=== PATIENT | female | born 1970 | race African-American/Black ===

== ENCOUNTER 2019-05-03 21:35 | IRF | payer OTHER, SELFPAY ==
--- NOTE | 2019-05-03 21:51 | ADMGEN ---
This patient, Delia Gonzales, was admitted to [facility] Room 223-01. Patient/family oriented to hospital policies and general routines including ID bracelet, bed and alarms, visiting hours, pain management, procedures, bathroom and other care routines, personal items, smoking policy, room service/diet, and visiting hours. Valuables list has been completed. Information on how to activate the Rapid Response Team has been discussed. Patient/Family are encouraged to report perceived risks to care and to ask questions if they do not understand what they are told or what they should do.
[2019-05-03 22:00] VITALS: BP 165/72; PULSE 66; RESP 18; TEMP 36.6; O2SAT 100
--- NOTE | 2019-05-03 22:46 | ADMGEN ---
This patient, Delia Gonzales, was admitted to [facility] Room 223-01 at 2135. Patient/family oriented to hospital policies and general routines including ID bracelet, bed and alarms, visiting hours, pain management, procedures, bathroom and other care routines, personal items, smoking policy, room service/diet, and visiting hours. Valuables list has been completed. Information on how to activate the Rapid Response Team has been discussed. Patient/Family are encouraged to report perceived risks to care and to ask questions if they do not understand what they are told or what they should do.
[2019-05-03 23:35] VITALS: PULSE 70
[2019-05-03] MEDS: ATORVASTATIN 40 MG TABLET 80 MG PO (23:35)
[2019-05-03] MEDS: carvediloL 12.5 MG TABLET PO (23:35)
[2019-05-03] MEDS: PANTOPRAZOLE 40 MG TABLET PO (23:36)
[2019-05-03] MEDS: INSULIN GLARGINE (*BKC) 100 UNITS/ML 15 UNITS SUB-Q (23:40)
[2019-05-03 23:49] LABS: Glucose Point of Care 116 (65-105)
[2019-05-04 05:38] LABS: Basophils Percent Auto 0.5 % (0.2-1.2); Eosinophils Absolute Auto 0.3 K/mm3 (0-0.3); Eosinophils Percent Auto 4.1 % (0-4.4); Hematocrit 30.7 % (37.0-47.0); Hemoglobin 9.7 g/dL (12.0-15.0); Immature Granulocyte Absolute 0.02 K/mm3 (0.00-0.031); Immature Granulocyte Percent A 0.3 % (0-0.5); Immature Platelet Fraction Pct 14.9 % (0.9-11.2); Lymphocytes Absolute Auto 2.02 K/mm3 (0.9-3.2); Lymphocytes Percent Auto 30.5 % (18.3-44.2); Mean Corpuscular HGB Conc 31.6 g/dl (32-36); Mean Corpuscular Hemoglobin 29.1 pg (26-34); Mean Corpuscular Volume 92.2 fl (80-100); Monocytes Absolute Auto 0.7 K/mm3 (0.1-0.6); Monocytes Percent Auto 11.2 % (2.6-8.5); Neutrophils Absolute Auto 3.5 K/mm3 (1.3-6.7); Neutrophils Percent Auto 53.4 % (45.5-73.1); Platelet Count Result 193 k/mm3 (150-375); Red Blood Count 3.33 M/mm3 (4.2-5.4); Red Cell Distribution Width 13.5 % (11.5-14.5); White Blood Count 6.6 K/mm3 (4.5-10.0)
[2019-05-04 05:48] LABS: Hemoglobin A1C 8.9 % (<5.7)
[2019-05-04 05:52] LABS: Blood Urea Nitrogen 54 mg/dL (7-17); Calcium 8.9 mg/dL (8.4-10.2); Carbon Dioxide 22 mmol/L (22-30); Chloride 104 mmol/L (98-107); Cholesterol 156 mg/dL (0-200); Estimated Glomerular Filt Rate 28; Glucose 68 mg/dL (65-105); HDL Direct 31 mg/dL; Sodium 136 mmol/L (137-145); Triglycerides 128 mg/dL (<150)
[2019-05-04 06:00] VITALS: BP 148/64; PULSE 64; RESP 17; TEMP 36.2; O2SAT 100
[2019-05-04 06:03] LABS: LDL Cholesterol Direct 86 mg/dL
[2019-05-04 06:41] LABS: Glucose Point of Care 100 (65-105)
[2019-05-04 07:17] VITALS: BMI 27.7
[2019-05-04] MEDS: CHLORTHALIDONE 25 MG TABLET PO (08:53)
[2019-05-04] MEDS: ASPIRIN 81 MG CHEWABLE TABLET PO (08:53)
[2019-05-04] MEDS: SPIRONOLACTONE 25 MG TABLET PO (08:54)
[2019-05-04] MEDS: AMLODIPINE BESYLATE 5 MG TABLET 10 MG PO (08:54)
[2019-05-04] MEDS: carvediloL 12.5 MG TABLET PO ×2 (08:54→20:17)
[2019-05-04] MEDS: INSULIN GLARGINE (*BKC) 100 UNITS/ML 15 UNITS SUB-Q ×2 (08:54→20:17)
[2019-05-04] MEDS: DOCUSATE SODIUM 100 MG CAPSULE PO (08:54)
--- NOTE | 2019-05-04 10:00 | WPDREHABHP ---
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 The patient is a for 8-year-old right-handed Afro [place] woman with a history of diabetes and hypertension presented to [facility] on April 28, 2019 with complaints of high blood pressure despite being compliant with her antihypertensive medications. She also has had complains of nausea vomiting and chest discomfort. The patient reported that she has checked her blood pressure at home and it was 220/108. In the emergency room her blood pressure was 240/141 and she was wanted admitted to a telemetry bed and Cardiology was consulted. EKG showed normal sinus and septal infarct which is stable from the previous EKG. Overnight on April 29 she developed right-sided weakness and MRI demonstrated an acute infarction in the left walter additional punctate acute infarctions within the right frontal coronary radiata and centrum semi ovale. It was thought the likely her hypertensive urgency was probably a reaction to cerebral ischemia in an attempt to perfuse the ischemic tissues and correcting her blood pressure likely precipitated the completion of the stroke. On May 02 the patient's BUN and creatinine peaked at 57 and 2.5. He elevations was likely secondary to metformin and lisinopril use and these medications were discontinued. On BUN is down trending to 55 and creatinine 2.3 and orders are to continue to monitor. She was placed on 20 units of Lantus b.i.d. for the treatment for of diabetes. Echocardiogram demonstrated an ejection fraction of 65% she currently is alert and oriented x3 but demonstrates some slow processing decreased cognition, impaired balance and decreased coordination the patient is discharged on a mechanical soft diet and thin liquids Therapy was initiated at the acute care facility and the patient transferred to us from [facility] on May 03, 2019 FALLS OR SURGERIES: The patient has had no major surgeries in the 100 days prior to admission. They had no falls in the past year. They had no falls with injury in the past year. PAST MEDICAL HISTORY: cataracts, asthma, peripheral neuropathy, diabetes mellitus type 2, hypertension PAST SURGICAL HISTORY: C sections SOCIAL HISTORY: the patient lives with her sister and children. She reported 3 to 4 falls in the last 2 months. She was independent with basic ADLs and family assisted with the instrumental ADLs. She did not use an assistive device FAMILY HISTORY: significant hypertension and diabetes and cardiac disease PRIOR LEVEL OF FUNCTION: Eating was INDEPENDENT Oral Care was INDEPENDENT Toileting Hygiene was INDEPENDENT Shower/Bathing was INDEPENDENT Upper Body Dressing was INDEPENDENT Lower Body Dressing was INDEPENDENT Donning/[place] Footwear was INDEPENDENT Rolling Left and Right was INDEPENDENT Sit to Lying was INDEPENDENT Lying to Sitting was INDEPENDENT Sit to Stand was INDEPENDENT Bed to Chair Transfers was INDEPENDENT Toilet Transfers was INDEPENDENT Walking was INDEPENDENT 750 feet with NO DEVICE Wheelchair Mobility was NOT APPLICABLE PRIOR TO ADMISSION Stairs were INDEPENDENT CURRENT LEVEL OF FUNCTION: Eating was partial or moderate assistance Oral Care was partial or moderate cyst Toileting Hygiene was substantial /maximal assistance Shower/Bathing was substantial/maximal assist Upper Body Dressing was substantial/maximal assist Lower Body Dressing was partial or moderate assistance Donning/[place] Footwear was substantial or maximal assistance Rolling Left and Right was substantial or maximal assistance Sit to Ly
[2019-05-04 11:46] LABS: Glucose Point of Care 159 (65-105)
[2019-05-04 14:00] VITALS: BP 138/68; PULSE 82; RESP 20; TEMP 36.8; O2SAT 97
[2019-05-04 15:12] VITALS: BMI 27.7
[2019-05-04] MEDS: PANTOPRAZOLE 40 MG TABLET PO (16:37)
[2019-05-04 16:51] LABS: Glucose Point of Care 192 (65-105)
--- NOTE | 2019-05-04 16:57 | RPD ---
INDIVIDUALIZED PLAN OF CARE FOR Delia Gonzales Brief Synthesis of Pre-Admission Screen, Post-Admission Evaluation and Therapy Evaluations: The patient presents to rehab with Acute infarct in the left medial walter and and right centrum semiovale. Comorbidities include HTN, nausea, vomiting,asthma, peripheral neuropathy, DMII, chest pain, smoker, diastolic dysfunction grade 2, moderate dysarthria, delayed processing, pain, weakness, CKDIII.The patient requires physician services for neurology services, medical oversight, and coordination of care.The patient needs physician monitoring for adverse reactions to new medications, and pain control. The patient requires nursing services for frequent neuro checks, anticoagulation therapy, medication management and education, pressure relief and skin care management, monitoring of labs, diabetes management and education, and fall/safety precautions. Deficits include:ADLs, Balance, Cognition, Endurance, Mobility, Pain Management, ROM, Safety, Strength, Transfers Meal Cooker/Case Management for: Discharge Planning and Patient/Family Counseling Physical Therapy: 5 days per week for 75 minutes. Treatments may include: Therapeutic Exercise, Gait Training, Neuromuscular Re-education, Transfer Training, Community Reintegration, Bed Mobility, Patient/Family Education, Wheelchair Mobility Group Therapy/Concurrent Therapy Rationales: -Improve attention span during functional activities in a distracted environment. -Enhance problem solving and/or adequate judgment skills during functional activities in a distracted environment. -Promote increased safety awareness in a distracted environment to reduce fall risk with functional tasks, transfers, and ambulation to allow a more safe, self-sufficient return to the home environment. -Improve dynamic balance skills to promote safety and independence with functional activities in a distracted environment for maximum gain. Occupational Therapy: 5 days per week for 75 minutes. Treatments may include: Therapeutic Exercise, Therapeutic Activity, Cognitive Training, Self-Care Transfer Training, Community Reintegration, Home Management, Patient/Family Education, Wheelchair Mobility Training, Energy Conservation Training Group Therapy/Concurrent Therapy Rationales: -Allow therapist to observe and teach generalization and carry-over of skills learned in individual therapy. -Enhance problem solving and sequencing skills during therapeutic activities in a distracted environment. -Promote increased safety awareness in a realistic setting to reduce fall risk with functional tasks due to visual and verbal distractions. -Increase functional level with ADLs, ADL transfers and use of adaptive equipment through therapeutic activities with others while promoting safety to allow a more safe, self-sufficient return home. Speech Therapy: 5 days per week for 30 minutes. Treatments may include: Dysphasia Therapy, Speech/Language/Communication Therapy, Cognitive Training, Patient/Family Education Group Therapy/Concurrent Therapy - Rationale: -Allow therapist to observe and teach generalization and carry-over of skills learned in individual therapy. -Improve comprehension skills with complex or abstract ideas through discussion in a realistic setting. -Enhance problem solving skills with complex issues during activities in a distracted environment. -Promote increased memory skills and concentration in a distracted environment for a safe transition home. -Improve attention and focus with language/communication skills in a realistic and supportive therapeutic setting. -Allow for practice of expression of basic needs and ideas through functional activities with others. Medical Prognosis: Good Anticipated Length of Stay: 12 days Rehab Goals: Eating Goal: 05-Setup or Clean Up Assistance Oral Hygiene Goal: 06-Independent Toileting Hygiene Goal: 04-Supervision or Touching Assistance Shower/Bathe Self Goal: 04-
[2019-05-04] MEDS: ATORVASTATIN 40 MG TABLET 80 MG PO (20:16)
[2019-05-04 21:13] LABS: Glucose Point of Care 169 (65-105)
[2019-05-04 22:00] VITALS: BP 132/64; PULSE 84; RESP 18; TEMP 36.4; O2SAT 100
[2019-05-04] MEDS: polyethylene glycoL 3350 17 GM POWD.PACK PO (23:30)
[2019-05-05 06:00] VITALS: BP 145/66; PULSE 64; RESP 17; TEMP 36.6; O2SAT 100
[2019-05-05 06:41] LABS: Glucose Point of Care 93 (65-105)
[2019-05-05] MEDS: AMLODIPINE BESYLATE 5 MG TABLET 10 MG PO (09:43)
[2019-05-05] MEDS: SPIRONOLACTONE 25 MG TABLET PO (09:43)
[2019-05-05] MEDS: INSULIN GLARGINE (*BKC) 100 UNITS/ML 15 UNITS SUB-Q ×2 (09:43→20:57)
[2019-05-05] MEDS: DOCUSATE SODIUM 100 MG CAPSULE PO ×2 (09:43→18:08)
[2019-05-05] MEDS: ASPIRIN 81 MG CHEWABLE TABLET PO (09:43)
[2019-05-05] MEDS: CHLORTHALIDONE 25 MG TABLET PO (09:43)
[2019-05-05] MEDS: carvediloL 12.5 MG TABLET PO ×2 (09:43→20:53)
[2019-05-05 12:26] LABS: Glucose Point of Care 217 (65-105)
[2019-05-05 14:00] VITALS: BP 174/84; PULSE 65; RESP 16; TEMP 36.3; O2SAT 100
[2019-05-05 17:47] LABS: Glucose Point of Care 215 (65-105)
[2019-05-05] MEDS: PANTOPRAZOLE 40 MG TABLET PO (18:08)
[2019-05-05 20:53] VITALS: PULSE 78
[2019-05-05] MEDS: ATORVASTATIN 40 MG TABLET 80 MG PO (20:53)
[2019-05-05] MEDS: polyethylene glycoL 3350 17 GM POWD.PACK PO (21:05)
[2019-05-05] MEDS: ACETAMINOPHEN 325 MG TABLET 650 MG PO (21:09)
[2019-05-05 21:19] LABS: Glucose Point of Care 309 (65-105)
[2019-05-05 22:00] VITALS: BP 150/67; PULSE 66; RESP 18; TEMP 36.6; O2SAT 100
[2019-05-06 06:00] VITALS: BP 152/89; PULSE 70; RESP 17; TEMP 36.8; O2SAT 100
[2019-05-06 07:16] LABS: Glucose Point of Care 169 (65-105)
[2019-05-06 09:39] VITALS: PULSE 70
[2019-05-06] MEDS: CHLORTHALIDONE 25 MG TABLET PO (09:39)
[2019-05-06] MEDS: carvediloL 12.5 MG TABLET PO ×2 (09:39→20:15)
[2019-05-06] MEDS: DOCUSATE SODIUM 100 MG CAPSULE PO ×2 (09:39→18:00)
[2019-05-06] MEDS: ASPIRIN 81 MG CHEWABLE TABLET PO (09:39)
[2019-05-06] MEDS: AMLODIPINE BESYLATE 5 MG TABLET 10 MG PO (09:39)
[2019-05-06] MEDS: SPIRONOLACTONE 25 MG TABLET PO (09:40)
[2019-05-06] MEDS: INSULIN GLARGINE (*BKC) 100 UNITS/ML 15 UNITS SUB-Q ×2 (09:40→22:17)
[2019-05-06] MEDS: ACETAMINOPHEN 325 MG TABLET 650 MG PO (09:43)
[2019-05-06 12:14] LABS: Glucose Point of Care 202 (65-105)
[2019-05-06 14:00] VITALS: BP 171/73; PULSE 64; RESP 18; TEMP 36.2; O2SAT 100
--- NOTE | 2019-05-06 14:13 | WPDNEURORHBP ---
Subjective Date/time seen: 05/06/19 14:13 Interval history: patient is here because of the stroke and right-sided hemiparesis she is little tired and complains of some back discomfort which is not terrible and mild headache not of much consequence she is moving forward in the therapy and quite eager to go home once she gets better no unusual neurological complaints particularly no significant or severe headaches or any neurological findings Review of Systems Constitutional: Constitutional: Reports no additional constitutional complaints Eyes: Eyes: Reports no additional eye complaints ENT: Reports system reviewed and no additional complaints, except as documented Cardiovascular: Cardiovascular: Reports no additional cardiovascular complaints Respiratory: Respiratory: Reports no additional respiratory complaints Gastrointestinal: Gastrointestinal: Reports no additional gastrointestinal complaints Genitourinary: Genitourinary: Reports no additional female genitourinary complaints Musculoskeletal: Musculoskeletal: Reports no additional musculoskeletal complaints Integumentary/Breasts: Skin/Breast: Reports system reviewed and no additional complaints, except as docu Neurologic: Reports system reviewed and no additional complaints, except as documented Psychiatric: Psychiatric: Reports no additional psychiatric complaints Functional Status Ambulation Ability Ability to Ambulate 10 Feet: Moderate Assistance X 1 Ability to Ambulate 50 Feet With 2 Turns: Maximum Assistance X 1 Ambulation Assistive Devices: Walker, Wheeled Transfers Ability Ability to Transfer In/Out of Chair: Moderate Assistance X 1 Exam Const: General: comfortable and no acute distress HENMT: General nose exam: Normal nares present Mouth: Yes moist mucous membranes Other: dysarthria or dysphonia and intact gag reflex Eyes: General: appearance normal, both eyes and all related structures Neck: Neck: supple and no JVD Resp: Effort & Inspection: normal respiratory effort Auscultation: clear to auscultation bilaterally Cardio: Rate: regular rate Rhythm: regular rhythm GI: GI Palp: Yes Soft to palpation Auscultation: normal bowel sounds : External Female Exam: normal external appearance Skin: General skin exam: normal color and no rashes or lesions noted Neuro: Other: patient remains awake and alert will only the time place and person cranial examination shows dysarthria and dysphonia related to brainstem stroke along with the right deep white matter stroke in the hemisphere Extrem: General: normal to inspection Objective Data Vital Signs Vital Signs: Vital Signs - 24 hr 05/05/19 20:53 05/05/19 22:00 05/06/19 06:00 Temperature 36.6 C 36.8 C Pulse Rate 78 66 70 Respiratory Rate 18 17 Blood Pressure 150/67 H 152/89 H Pulse Oximetry 100 100 05/06/19 09:39 Temperature Pulse Rate 70 Respiratory Rate Blood Pressure Pulse Oximetry Intake/Output Intake/Output: Intake & Output 05/03/19 05/04/19 05/05/19 05/06/19 23:59 23:59 23:59 23:59 Intake Total 840 440 360 Balance 840 440 360 Meds/Results Medications: Active Medications Generic Name Dose Route Start Last Admin Trade Name Freq PRN Reason Stop Dose Admin Acetaminophen 650 mg 05/04/19 14:57 05/06/19 09:43 Tylenol Tablet PO 650 mg Q4H PRN Administration Mild Pain (1-3) or Fever Amlodipine Besylate 10 mg 05/04/19 09:00 05/06/19 09:39 Norvasc PO 10 mg DAILY BRADY Administration Aspirin 81 mg 05/04/19 08:00 05/06/19 09:39 Aspirin Chewable PO 81 mg DAILY@0800 BRADY Administration Atorvastatin Calcium 80 mg 05/03/19 23:00 05/05/19 20:53 Lipitor PO 80 mg HS BRADY Administration Carvedilol 12.5 mg 05/03/19 23:00 05/06/19 09:39 Coreg PO 12.5 mg Q12HR BRADY Administration Chlorthalidone 25 mg 05/04/19 09:00 05/06/19 09:39 Hygroton PO 25 mg DAILY BRADY Administration Docusate Sodium 100 mg 0
[2019-05-06 17:43] LABS: Glucose Point of Care 163 (65-105)
[2019-05-06] MEDS: PANTOPRAZOLE 40 MG TABLET PO (17:59)
[2019-05-06 20:15] VITALS: PULSE 72
[2019-05-06] MEDS: ATORVASTATIN 40 MG TABLET 80 MG PO (20:15)
[2019-05-06 20:35] LABS: Glucose Point of Care 156 (65-105)
[2019-05-06 21:00] VITALS: BP 146/70; PULSE 72; RESP 18; TEMP 36.3; O2SAT 100
[2019-05-06 22:00] VITALS: BP 142/73; PULSE 68; RESP 18; TEMP 36.6; O2SAT 100
[2019-05-07 05:43] LABS: Potassium 4.7 mmol/L (3.4-5.0)
[2019-05-07 06:00] VITALS: BP 146/70; PULSE 72; RESP 18; TEMP 36.3; O2SAT 100
[2019-05-07 06:02] LABS: Blood Urea Nitrogen 54 mg/dL (7-17); Carbon Dioxide 23 mmol/L (22-30); Chloride 101 mmol/L (98-107); Estimated Glomerular Filt Rate 29; Glucose 127 mg/dL (65-105); Sodium 134 mmol/L (137-145)
[2019-05-07 07:05] LABS: Glucose Point of Care 120 (65-105)
[2019-05-07 09:31] VITALS: PULSE 63
[2019-05-07] MEDS: CHLORTHALIDONE 25 MG TABLET PO (09:31)
[2019-05-07] MEDS: carvediloL 12.5 MG TABLET PO ×2 (09:31→20:17)
[2019-05-07] MEDS: ASPIRIN 81 MG CHEWABLE TABLET PO (09:31)
[2019-05-07] MEDS: SPIRONOLACTONE 25 MG TABLET PO (09:31)
[2019-05-07] MEDS: AMLODIPINE BESYLATE 5 MG TABLET 10 MG PO (09:31)
[2019-05-07] MEDS: DOCUSATE SODIUM 100 MG CAPSULE PO ×2 (09:32→17:41)
[2019-05-07] MEDS: INSULIN GLARGINE (*BKC) 100 UNITS/ML 15 UNITS SUB-Q ×2 (09:37→20:19)
[2019-05-07 12:26] LABS: Glucose Point of Care 133 (65-105)
[2019-05-07 14:00] VITALS: BP 177/78; PULSE 71; RESP 18; TEMP 36.9; O2SAT 100
[2019-05-07 17:25] LABS: Glucose Point of Care 140 (65-105)
[2019-05-07] MEDS: PANTOPRAZOLE 40 MG TABLET PO (17:41)
[2019-05-07 20:17] VITALS: PULSE 90
[2019-05-07] MEDS: ATORVASTATIN 40 MG TABLET 80 MG PO (20:18)
[2019-05-07] MEDS: ACETAMINOPHEN 325 MG TABLET 650 MG PO (20:24)
[2019-05-07 21:30] LABS: Glucose Point of Care 177 (65-105)
[2019-05-07 22:00] VITALS: BP 169/80; PULSE 70; RESP 18; TEMP 36.5; O2SAT 100
[2019-05-08 05:49] VITALS: BP 143/77; PULSE 65; RESP 18; TEMP 36.3; O2SAT 100
[2019-05-08 06:43] LABS: Glucose Point of Care 108 (65-105)
[2019-05-08] MEDS: AMLODIPINE BESYLATE 5 MG TABLET 10 MG PO (08:09)
[2019-05-08] MEDS: ASPIRIN 81 MG CHEWABLE TABLET PO (08:09)
[2019-05-08] MEDS: SPIRONOLACTONE 25 MG TABLET PO (08:09)
[2019-05-08 08:10] VITALS: PULSE 65
[2019-05-08] MEDS: DOCUSATE SODIUM 100 MG CAPSULE PO ×2 (08:10→17:37)
[2019-05-08] MEDS: CHLORTHALIDONE 25 MG TABLET PO (08:10)
[2019-05-08] MEDS: carvediloL 12.5 MG TABLET PO ×2 (08:10→20:40)
[2019-05-08] MEDS: INSULIN GLARGINE (*BKC) 100 UNITS/ML 15 UNITS SUB-Q ×2 (08:12→20:43)
[2019-05-08 12:28] LABS: Glucose Point of Care 127 (65-105)
--- NOTE | 2019-05-08 12:28 | PCSTNOTE ---
Please refer to the Bedside Swallow Evaluation in the EMR.
--- NOTE | 2019-05-08 12:33 | WPDNEURORHBP ---
Subjective Date/time seen: 05/08/19 12:33 Interval history: this 48-year-old young Afro-[place]aysian woman is here on the acute rehab after sustaining an acute infarct in the left medial walter and right centrum semi ovale her dysarthria dysphonia and right-sided hemiparesis improving she does not have any new neurological complaints and in fact not any other complaints pertaining to her head neck chest heart abdomen and urinary tract for the team conference her close friend was on the telephone was asking the question And they were appropriately answered by our team Review of Systems Constitutional: Constitutional: Reports no additional constitutional complaints Eyes: Eyes: Reports no additional eye complaints ENT: Reports system reviewed and no additional complaints, except as documented Cardiovascular: Cardiovascular: Reports no additional cardiovascular complaints Respiratory: Respiratory: Reports no additional respiratory complaints Gastrointestinal: Gastrointestinal: Reports no additional gastrointestinal complaints Genitourinary: Genitourinary: Reports no additional female genitourinary complaints Musculoskeletal: Musculoskeletal: Reports no additional musculoskeletal complaints Integumentary/Breasts: Skin/Breast: Reports system reviewed and no additional complaints, except as docu Neurologic: Reports system reviewed and no additional complaints, except as documented Psychiatric: Psychiatric: Reports no additional psychiatric complaints Functional Status Ambulation Ability Ability to Ambulate 10 Feet: Maximum Assistance X 1 Ability to Ambulate 50 Feet With 2 Turns: Maximum Assistance X 1 Ambulation Assistive Devices: Walker, Wheeled Transfers Ability Ability to Transfer In/Out of Chair: Moderate Assistance X 1 Exam Const: General: comfortable and no acute distress HENMT: General nose exam: Normal nares present Mouth: Yes moist mucous membranes Eyes: General: appearance normal, both eyes and all related structures Neck: Neck: supple and no JVD Resp: Effort & Inspection: normal respiratory effort Auscultation: clear to auscultation bilaterally Cardio: Rate: regular rate Rhythm: regular rhythm GI: GI Palp: Yes Soft to palpation Auscultation: normal bowel sounds Skin: General skin exam: normal color and no rashes or lesions noted Neuro: Other: the patient is dysphonia and dysarthria is improving likewise her right-sided hemiparesis is improving patient will require speech therapy for dysphonia and dysarthria which is in order Objective Data Vital Signs Vital Signs: Vital Signs - 24 hr 05/07/19 14:00 05/07/19 20:17 05/07/19 22:00 Temperature 36.9 C 36.5 C Pulse Rate 71 90 70 Respiratory Rate 18 18 Blood Pressure 177/78 H 169/80 H Pulse Oximetry 100 100 05/08/19 05:49 05/08/19 08:10 Temperature 36.3 C L Pulse Rate 65 65 Respiratory Rate 18 Blood Pressure 143/77 H Pulse Oximetry 100 Intake/Output Intake/Output: Intake & Output 05/05/19 05/06/19 05/07/19 05/08/19 23:59 23:59 23:59 23:59 Intake Total 440 960 480 240 Balance 440 960 480 240 Meds/Results Medications: Active Medications Generic Name Dose Route Start Last Admin Trade Name Freq PRN Reason Stop Dose Admin Acetaminophen 650 mg 05/04/19 14:57 05/07/19 20:24 Tylenol Tablet PO 650 mg Q4H PRN Administration Mild Pain (1-3) or Fever Amlodipine Besylate 10 mg 05/04/19 09:00 05/08/19 08:09 Norvasc PO 10 mg DAILY BRADY Administration Aspirin 81 mg 05/04/19 08:00 05/08/19 08:09 Aspirin Chewable PO 81 mg DAILY@0800 BRADY Administration Atorvastatin Calcium 80 mg 05/03/19 23:00 05/07/19 20:18 Lipitor PO 80 mg HS BRADY Administration Carvedilol 12.5 mg 05/03/19 23:00 05/08/19 08:10 Coreg PO 12.5 mg Q12HR BRADY Administration Chlorthalidone 25 mg 05/04/19 09:00 05/08/19 08:10 Hygroton PO 25 mg DAILY BRADY Administration Docusate Sodium 100 mg 0
[2019-05-08 14:00] VITALS: BP 166/88; PULSE 64; RESP 18; TEMP 36.4; O2SAT 100
[2019-05-08 17:14] LABS: Glucose Point of Care 183 (65-105)
[2019-05-08] MEDS: PANTOPRAZOLE 40 MG TABLET PO (17:37)
[2019-05-08 20:40] VITALS: PULSE 80
[2019-05-08] MEDS: ATORVASTATIN 40 MG TABLET 80 MG PO (20:40)
[2019-05-08 21:51] LABS: Glucose Point of Care 184 (65-105)
[2019-05-08 22:00] VITALS: BP 152/76; PULSE 66; RESP 18; TEMP 36.2; O2SAT 97
[2019-05-09] MEDS: ACETAMINOPHEN 325 MG TABLET 650 MG PO (05:30)
[2019-05-09 06:00] VITALS: BP 127/67; PULSE 74; RESP 18; TEMP 36.8; O2SAT 100
[2019-05-09 08:11] LABS: Glucose Point of Care 123 (65-105)
[2019-05-09 08:56] VITALS: PULSE 74
[2019-05-09] MEDS: ASPIRIN 81 MG CHEWABLE TABLET PO (08:56)
[2019-05-09] MEDS: DOCUSATE SODIUM 100 MG CAPSULE PO ×2 (08:56→17:03)
[2019-05-09] MEDS: SPIRONOLACTONE 25 MG TABLET PO (08:56)
[2019-05-09] MEDS: AMLODIPINE BESYLATE 5 MG TABLET 10 MG PO (08:56)
[2019-05-09] MEDS: carvediloL 12.5 MG TABLET PO ×2 (08:56→20:59)
[2019-05-09] MEDS: CHLORTHALIDONE 25 MG TABLET PO (08:56)
[2019-05-09] MEDS: INSULIN GLARGINE (*BKC) 100 UNITS/ML 15 UNITS SUB-Q ×2 (08:57→21:02)
--- NOTE | 2019-05-09 11:05 | WPDNEURORHBP ---
Subjective Date/time seen: 05/09/19 11:05 Interval history: patient is here with a stroke and hypertension and diabetes today she is relatively sad because as she was expecting the progress is not as good however on the other hand she is improving and engage in therapy motivated and working with it She denies any headache chest pain shortness of breath Review of Systems Constitutional: Constitutional: Reports no additional constitutional complaints Eyes: Eyes: Reports no additional eye complaints ENT: Reports system reviewed and no additional complaints, except as documented Cardiovascular: Cardiovascular: Reports no additional cardiovascular complaints Respiratory: Respiratory: Reports no additional respiratory complaints Gastrointestinal: Gastrointestinal: Reports no additional gastrointestinal complaints Genitourinary: Genitourinary: Reports no additional female genitourinary complaints Musculoskeletal: Musculoskeletal: Reports no additional musculoskeletal complaints Integumentary/Breasts: Skin/Breast: Reports system reviewed and no additional complaints, except as docu Neurologic: Reports system reviewed and no additional complaints, except as documented Psychiatric: Psychiatric: Reports no additional psychiatric complaints Functional Status Ambulation Ability Ability to Ambulate 10 Feet: Moderate Assistance X 1 Ability to Ambulate 50 Feet With 2 Turns: Maximum Assistance X 1 Ambulation Assistive Devices: Walker, Wheeled Transfers Ability Ability to Transfer In/Out of Chair: Moderate Assistance X 1 Exam Const: General: comfortable and no acute distress HENMT: General nose exam: Normal nares present Mouth: Yes moist mucous membranes Eyes: General: appearance normal, both eyes and all related structures Neck: Neck: supple and no JVD Resp: Effort & Inspection: normal respiratory effort Auscultation: clear to auscultation bilaterally Cardio: Rate: regular rate Rhythm: regular rhythm GI: Auscultation: normal bowel sounds Skin: General skin exam: normal color and no rashes or lesions noted Neuro: Other: mild cognitive deficit dysarthria or dysphonia and moderately severe right-sided hemiparesis slowly improving Extrem: General: normal to inspection Objective Data Vital Signs Vital Signs: Vital Signs - 24 hr 05/08/19 14:00 05/08/19 20:40 05/08/19 22:00 Temperature 36.4 C 36.2 C L Pulse Rate 64 80 66 Respiratory Rate 18 18 Blood Pressure 166/88 H 152/76 H Pulse Oximetry 100 97 05/09/19 06:00 05/09/19 08:56 Temperature 36.8 C Pulse Rate 74 74 Respiratory Rate 18 Blood Pressure 127/67 Pulse Oximetry 100 Intake/Output Intake/Output: Intake & Output 05/06/19 05/07/19 05/08/19 05/09/19 23:59 23:59 23:59 23:59 Intake Total 960 480 720 240 Balance 960 480 720 240 Meds/Results Medications: Active Medications Generic Name Dose Route Start Last Admin Trade Name Freq PRN Reason Stop Dose Admin Acetaminophen 650 mg 05/04/19 14:57 05/09/19 05:30 Tylenol Tablet PO 650 mg Q4H PRN Administration Mild Pain (1-3) or Fever Amlodipine Besylate 10 mg 05/04/19 09:00 05/09/19 08:56 Norvasc PO 10 mg DAILY BRADY Administration Aspirin 81 mg 05/04/19 08:00 05/09/19 08:56 Aspirin Chewable PO 81 mg DAILY@0800 BRADY Administration Atorvastatin Calcium 80 mg 05/03/19 23:00 05/08/19 20:40 Lipitor PO 80 mg HS BRADY Administration Carvedilol 12.5 mg 05/03/19 23:00 05/09/19 08:56 Coreg PO 12.5 mg Q12HR BRADY Administration Chlorthalidone 25 mg 05/04/19 09:00 05/09/19 08:56 Hygroton PO 25 mg DAILY BRADY Administration Docusate Sodium 100 mg 05/04/19 09:00 05/09/19 08:56 Colace Capsule PO 100 mg BID BRADY Administration Insulin Glargine 15 units 05/03/19 23:00 05/09/19 08:57 Lantus SUB-Q 15 units Q12HR BRADY Administration Pantoprazole Sodium 40 mg 05/03/19 22:25 05/08/19 17:37 Protonix PO 4
[2019-05-09 11:50] VITALS: BMI 27.7
[2019-05-09 12:14] LABS: Glucose Point of Care 223 (65-105)
[2019-05-09 14:00] VITALS: BP 154/77; PULSE 72; RESP 18; TEMP 36.3; O2SAT 99
[2019-05-09 16:52] LABS: Glucose Point of Care 208 (65-105)
[2019-05-09] MEDS: PANTOPRAZOLE 40 MG TABLET PO (17:03)
[2019-05-09 20:59] VITALS: PULSE 64
[2019-05-09 22:00] VITALS: BP 166/77; PULSE 72; RESP 18; TEMP 36.5; O2SAT 100
[2019-05-09 22:34] LABS: Glucose Point of Care 222 (65-105)
[2019-05-10 06:00] VITALS: BP 144/85; PULSE 65; RESP 18; TEMP 36.3; O2SAT 96
[2019-05-10 07:14] LABS: Glucose Point of Care 126 (65-105)
[2019-05-10 09:27] VITALS: PULSE 64
[2019-05-10] MEDS: AMLODIPINE BESYLATE 5 MG TABLET 10 MG PO (09:27)
[2019-05-10] MEDS: DOCUSATE SODIUM 100 MG CAPSULE PO ×2 (09:27→16:31)
[2019-05-10] MEDS: ASPIRIN 81 MG CHEWABLE TABLET PO (09:27)
[2019-05-10] MEDS: CHLORTHALIDONE 25 MG TABLET PO (09:27)
[2019-05-10] MEDS: carvediloL 12.5 MG TABLET PO ×2 (09:27→21:29)
[2019-05-10] MEDS: SPIRONOLACTONE 25 MG TABLET PO (09:28)
[2019-05-10] MEDS: ACETAMINOPHEN 325 MG TABLET 650 MG PO ×2 (09:32→23:17)
[2019-05-10] MEDS: INSULIN GLARGINE (*BKC) 100 UNITS/ML 15 UNITS SUB-Q ×2 (09:33→21:27)
[2019-05-10 12:13] LABS: Glucose Point of Care 225 (65-105)
[2019-05-10 14:00] VITALS: BP 142/82; PULSE 76; RESP 18; TEMP 36.6; O2SAT 97
[2019-05-10] MEDS: PANTOPRAZOLE 40 MG TABLET PO (16:31)
[2019-05-10 17:33] LABS: Glucose Point of Care 137 (65-105)
[2019-05-10 20:26] VITALS: BP 150/72; PULSE 65; RESP 20; TEMP 36.3; O2SAT 99
[2019-05-10 20:46] LABS: Glucose Point of Care 158 (65-105)
[2019-05-10] MEDS: ATORVASTATIN 40 MG TABLET 80 MG PO ×2 (20:59→22:14)
[2019-05-10 21:29] VITALS: PULSE 72
[2019-05-11 04:52] LABS: Basophils Percent Auto 0.6 % (0.2-1.2); Eosinophils Absolute Auto 0.4 K/mm3 (0-0.3); Eosinophils Percent Auto 6.4 % (0-4.4); Hematocrit 28.3 % (37.0-47.0); Hemoglobin 9.1 g/dL (12.0-15.0); Immature Granulocyte Absolute 0.02 K/mm3 (0.00-0.031); Immature Granulocyte Percent A 0.3 % (0-0.5); Immature Platelet Fraction Pct 15.2 % (0.9-11.2); Lymphocytes Absolute Auto 2.14 K/mm3 (0.9-3.2); Lymphocytes Percent Auto 33.5 % (18.3-44.2); Mean Corpuscular HGB Conc 32.2 g/dl (32-36); Mean Corpuscular Hemoglobin 28.9 pg (26-34); Mean Corpuscular Volume 89.8 fl (80-100); Monocytes Absolute Auto 0.7 K/mm3 (0.1-0.6); Monocytes Percent Auto 10.3 % (2.6-8.5); Neutrophils Absolute Auto 3.1 K/mm3 (1.3-6.7); Neutrophils Percent Auto 48.9 % (45.5-73.1); Platelet Count Result 202 k/mm3 (150-375); Red Blood Count 3.15 M/mm3 (4.2-5.4); Red Cell Distribution Width 13.4 % (11.5-14.5); White Blood Count 6.4 K/mm3 (4.5-10.0)
[2019-05-11 05:16] LABS: Blood Urea Nitrogen 46 mg/dL (7-17); Calcium 9.1 mg/dL (8.4-10.2); Carbon Dioxide 25 mmol/L (22-30); Chloride 103 mmol/L (98-107); Estimated Glomerular Filt Rate 31; Glucose 87 mg/dL (65-105); Potassium 4.4 mmol/L (3.4-5.0); Sodium 137 mmol/L (137-145)
[2019-05-11 06:16] VITALS: BP 154/73; PULSE 63; RESP 18; TEMP 36.3; O2SAT 100
[2019-05-11 07:40] LABS: Glucose Point of Care 67 (65-105)
[2019-05-11] MEDS: ASPIRIN 81 MG CHEWABLE TABLET PO (09:24)
[2019-05-11 09:25] VITALS: PULSE 63
[2019-05-11] MEDS: DOCUSATE SODIUM 100 MG CAPSULE PO ×2 (09:25→18:22)
[2019-05-11] MEDS: AMLODIPINE BESYLATE 5 MG TABLET 10 MG PO (09:25)
[2019-05-11] MEDS: CHLORTHALIDONE 25 MG TABLET PO (09:25)
[2019-05-11] MEDS: carvediloL 12.5 MG TABLET PO ×2 (09:25→21:01)
[2019-05-11] MEDS: INSULIN GLARGINE (*BKC) 100 UNITS/ML 15 UNITS SUB-Q (09:26)
[2019-05-11] MEDS: SPIRONOLACTONE 25 MG TABLET PO (09:27)
[2019-05-11 12:44] LABS: Glucose Point of Care 101 (65-105)
[2019-05-11 14:00] VITALS: BP 147/62; PULSE 62; RESP 18; TEMP 36.4; O2SAT 100
--- NOTE | 2019-05-11 14:53 | WPDNEURORHBP ---
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 and dysphagia dysarthria and right-sided hemiparesis she is improving overall She denies any headache chest pain shortness of breath nausea vomiting abdominal pain fever chills sore throat Review of Systems Constitutional: Constitutional: Reports no additional constitutional complaints Eyes: Eyes: Reports no additional eye complaints ENT: Reports system reviewed and no additional complaints, except as documented Cardiovascular: Cardiovascular: Reports no additional cardiovascular complaints Respiratory: Respiratory: Reports no additional respiratory complaints Gastrointestinal: Gastrointestinal: Reports no additional gastrointestinal complaints Genitourinary: Genitourinary: Reports no additional female genitourinary complaints Musculoskeletal: Musculoskeletal: Reports no additional musculoskeletal complaints Integumentary/Breasts: Skin/Breast: Reports system reviewed and no additional complaints, except as docu Neurologic: Reports system reviewed and no additional complaints, except as documented Psychiatric: Psychiatric: Reports no additional psychiatric complaints Functional Status Ambulation Ability Ability to Ambulate 10 Feet: Moderate Assistance X 1 Ability to Ambulate 50 Feet With 2 Turns: Maximum Assistance X 1 Ambulation Assistive Devices: Railings and Walker, Wheeled Transfers Ability Ability to Transfer In/Out of Chair: Moderate Assistance X 1 Exam Const: General: comfortable and no acute distress HENMT: General nose exam: Normal nares present Mouth: Yes moist mucous membranes Eyes: General: appearance normal, both eyes and all related structures Neck: Neck: supple and no JVD Resp: Effort & Inspection: normal respiratory effort Auscultation: clear to auscultation bilaterally Cardio: Rate: regular rate Rhythm: regular rhythm GI: GI Palp: Yes Soft to palpation Percussion: Yes normal to percussion Auscultation: normal bowel sounds : External Female Exam: normal external appearance Skin: General skin exam: normal color Neuro: Other: patient's dysphonia and dysarthria is improving likewise right-sided hemiparesis improving there is no worsening noted at the no other neurological findings Extrem: General: normal to inspection Objective Data Vital Signs Vital Signs: Vital Signs - 24 hr 05/10/19 20:26 05/10/19 21:29 05/11/19 06:16 Temperature 36.3 C L 36.3 C L Pulse Rate 65 72 63 Respiratory Rate 20 18 Blood Pressure 150/72 H 154/73 H Pulse Oximetry 99 100 05/11/19 09:25 Temperature Pulse Rate 63 Respiratory Rate Blood Pressure Pulse Oximetry Intake/Output Intake/Output: Intake & Output 05/08/19 05/09/19 05/10/19 05/11/19 23:59 23:59 23:59 23:59 Intake Total 720 720 720 480 Balance 720 720 720 480 Meds/Results Medications: Active Medications Generic Name Dose Route Start Last Admin Trade Name Freq PRN Reason Stop Dose Admin Acetaminophen 650 mg 05/04/19 14:57 05/10/19 23:17 Tylenol Tablet PO 650 mg Q4H PRN Administration Mild Pain (1-3) or Fever Amlodipine Besylate 10 mg 05/04/19 09:00 05/11/19 09:25 Norvasc PO 10 mg DAILY BRADY Administration Aspirin 81 mg 05/04/19 08:00 05/11/19 09:24 Aspirin Chewable PO 81 mg DAILY@0800 BRADY Administration Atorvastatin Calcium 80 mg 05/03/19 23:00 05/10/19 22:14 Lipitor PO 80 mg HS BRADY Administration Carvedilol 12.5 mg 05/03/19 23:00 05/11/19 09:25 Coreg PO 12.5 mg Q12HR BRADY Administration Chlorthalidone 25 mg 05/04/19 09:00 05/11/19 09:25 Hygroton PO 25 mg DAILY BRADY Administration Dextrose 12.5 gm 05/11/19 11:19 Dextrose 50% Syringe IV PUSH PRN PRN Hypoglycemia Protocol Docusate Sodium 100 mg 05/04/19 09:00 05/11/19 09:25 Colace Capsule PO 100 mg BI
[2019-05-11 17:47] LABS: Glucose Point of Care 100 (65-105)
[2019-05-11] MEDS: PANTOPRAZOLE 40 MG TABLET PO (18:22)
[2019-05-11 21:01] VITALS: PULSE 66
[2019-05-11] MEDS: ATORVASTATIN 40 MG TABLET 80 MG PO (21:01)
[2019-05-11 21:51] LABS: Glucose Point of Care 91 (65-105)
[2019-05-11 22:00] VITALS: BP 140/72; PULSE 65; RESP 16; TEMP 36.8; O2SAT 100
[2019-05-12 06:00] VITALS: BP 133/65; PULSE 69; RESP 18; TEMP 36.4; O2SAT 100
[2019-05-12 07:06] LABS: Glucose Point of Care 75 (65-105)
[2019-05-12 08:00] VITALS: PULSE 80; RESP 18; O2SAT 100
[2019-05-12] MEDS: DOCUSATE SODIUM 100 MG CAPSULE PO ×2 (09:44→17:05)
[2019-05-12] MEDS: ASPIRIN 81 MG CHEWABLE TABLET PO (09:44)
[2019-05-12] MEDS: AMLODIPINE BESYLATE 5 MG TABLET 10 MG PO (09:44)
[2019-05-12 09:46] VITALS: PULSE 80
[2019-05-12] MEDS: SPIRONOLACTONE 25 MG TABLET PO (09:46)
[2019-05-12] MEDS: CHLORTHALIDONE 25 MG TABLET PO (09:46)
[2019-05-12] MEDS: carvediloL 12.5 MG TABLET PO ×2 (09:46→22:23)
--- NOTE | 2019-05-12 11:30 | WPDNEURORHBP ---
Subjective Date/time seen: May 12 at 11:30 a.m. Interval history: this 48-year-old Afro-[place] woman is on the rehab floor after suffering from brainstem stroke with dysarthria dysphonia and dysphagia all of which are improving right-sided hemiparesis is also improving she is working hard could back to her usual self no neurological new complaints particularly no headaches no chest pain no shortness of breath no fever no chills no sore throat no abdominal pain diarrhea or vomiting Review of Systems Constitutional: Constitutional: Reports no additional constitutional complaints Eyes: Eyes: Reports no additional eye complaints ENT: Reports system reviewed and no additional complaints, except as documented Cardiovascular: Cardiovascular: Reports no additional cardiovascular complaints Respiratory: Respiratory: Reports no additional respiratory complaints Gastrointestinal: Gastrointestinal: Reports no additional gastrointestinal complaints Genitourinary: Genitourinary: Reports no additional female genitourinary complaints Musculoskeletal: Musculoskeletal: Reports no additional musculoskeletal complaints Integumentary/Breasts: Skin/Breast: Reports system reviewed and no additional complaints, except as docu Neurologic: Reports system reviewed and no additional complaints, except as documented Psychiatric: Psychiatric: Reports no additional psychiatric complaints Functional Status Ambulation Ability Ability to Ambulate 10 Feet: Minimum Assistance X 1 Ability to Ambulate 50 Feet With 2 Turns: Minimum Assistance X 1 Ambulation Assistive Devices: Walker, Platform Transfers Ability Ability to Transfer In/Out of Chair: Moderate Assistance X 1 Exam Const: General: comfortable and no acute distress HENMT: General nose exam: Normal nares present Mouth: Yes moist mucous membranes Eyes: General: appearance normal, both eyes and all related structures Neck: Neck: supple and no JVD Resp: Effort & Inspection: normal respiratory effort Auscultation: clear to auscultation bilaterally Cardio: Rate: regular rate Rhythm: regular rhythm GI: GI Palp: Yes Soft to palpation Auscultation: normal bowel sounds : External Female Exam: normal external appearance Skin: General skin exam: normal color and no rashes or lesions noted Neuro: Other: patient is fully awake and alert well oriented time place and person with mild dysarthria mild dysphonia and mild dysphagia and improving right-sided hemiparesis Extrem: General: normal to inspection Objective Data Vital Signs Vital Signs: Vital Signs - 24 hr 05/12/19 14:00 05/12/19 22:00 05/13/19 06:00 Temperature 36.4 C 36.5 C 36.5 C Pulse Rate 66 71 69 Respiratory Rate 18 16 16 Blood Pressure 150/96 H 173/82 H 174/66 H Pulse Oximetry 100 100 100 05/13/19 10:04 Temperature Pulse Rate 69 Respiratory Rate Blood Pressure Pulse Oximetry Intake/Output Intake/Output: Intake & Output 05/10/19 05/11/19 05/12/19 05/13/19 23:59 23:59 23:59 23:59 Intake Total 720 840 760 240 Balance 720 840 760 240 Meds/Results Medications: Active Medications Generic Name Dose Route Start Last Admin Trade Name Freq PRN Reason Stop Dose Admin Acetaminophen 650 mg 05/04/19 14:57 05/10/19 23:17 Tylenol Tablet PO 650 mg Q4H PRN Administration Mild Pain (1-3) or Fever Amlodipine Besylate 10 mg 05/04/19 09:00 05/13/19 10:04 Norvasc PO 10 mg DAILY BRADY Administration Aspirin 81 mg 05/04/19 08:00 05/13/19 10:05 Aspirin Chewable PO 81 mg DAILY@0800 BRADY Administration Atorvastatin Calcium 80 mg 05/03/19 23:00 05/12/19 22:23 Lipitor PO 80 mg HS BRADY Administration Carvedilol 12.5 mg 05/03/19 23:00 05/13/19 10:04 Coreg PO 12.5 mg Q12HR BRADY Administration Chlorthalidone 25 mg 05/04/19 09:00 05/13/19 10:04 Hygroton PO 25 mg DAILY BRADY Administration Dextrose 12.5 gm 05/11/19 11:19 Dextrose 50% [facility]
[2019-05-12 12:20] LABS: Glucose Point of Care 144 (65-105)
[2019-05-12 14:00] VITALS: BP 150/96; PULSE 66; RESP 18; TEMP 36.4; O2SAT 100
[2019-05-12] MEDS: PANTOPRAZOLE 40 MG TABLET PO (17:04)
[2019-05-12 17:21] LABS: Glucose Point of Care 174 (65-105)
[2019-05-12 21:26] LABS: Glucose Point of Care 153 (65-105)
[2019-05-12 22:00] VITALS: BP 173/82; PULSE 71; RESP 16; TEMP 36.5; O2SAT 100
[2019-05-12] MEDS: ATORVASTATIN 40 MG TABLET 80 MG PO (22:23)
[2019-05-13] MEDS: glipiZIDE 2.5 MG TABLET PO (05:59)
[2019-05-13 06:00] VITALS: BP 174/66; PULSE 69; RESP 16; TEMP 36.5; O2SAT 100
[2019-05-13 06:40] LABS: Glucose Point of Care 134 (65-105)
[2019-05-13 10:04] VITALS: PULSE 69
[2019-05-13] MEDS: AMLODIPINE BESYLATE 5 MG TABLET 10 MG PO (10:04)
[2019-05-13] MEDS: DOCUSATE SODIUM 100 MG CAPSULE PO ×2 (10:04→18:21)
[2019-05-13] MEDS: CHLORTHALIDONE 25 MG TABLET PO (10:04)
[2019-05-13] MEDS: carvediloL 12.5 MG TABLET PO ×2 (10:04→20:17)
[2019-05-13] MEDS: ASPIRIN 81 MG CHEWABLE TABLET PO (10:05)
[2019-05-13] MEDS: SPIRONOLACTONE 25 MG TABLET PO (10:05)
[2019-05-13] MEDS: INSULIN GLARGINE (*BKC) 100 UNITS/ML 20 UNITS SUB-Q (10:21)
[2019-05-13 12:15] LABS: Glucose Point of Care 159 (65-105)
[2019-05-13 14:00] VITALS: BP 152/67; PULSE 79; RESP 20; TEMP 36.3; O2SAT 97
--- NOTE | 2019-05-13 14:20 | WPDNEURORHBP ---
Subjective Date/time seen: 05/13/19 14:20 Interval history: days 48-year-old Afro-Lao woman is here after suffering from brainstem stroke which has left her with dysphonia and this far 3 a and dysphagia and right-sided hemiparesis she is improving overall and happy with the care She denies any headache nausea vomiting chest pain shortness of breath fever chills sore throat urinary incontinence etc Review of Systems Constitutional: Constitutional: Reports no additional constitutional complaints Eyes: Eyes: Reports no additional eye complaints ENT: Reports system reviewed and no additional complaints, except as documented Cardiovascular: Cardiovascular: Reports no additional cardiovascular complaints Respiratory: Respiratory: Reports no additional respiratory complaints Gastrointestinal: Gastrointestinal: Reports no additional gastrointestinal complaints Genitourinary: Genitourinary: Reports no additional female genitourinary complaints Musculoskeletal: Musculoskeletal: Reports no additional musculoskeletal complaints Integumentary/Breasts: Skin/Breast: Reports system reviewed and no additional complaints, except as docu Neurologic: Reports system reviewed and no additional complaints, except as documented Psychiatric: Psychiatric: Reports no additional psychiatric complaints Functional Status Ambulation Ability Ability to Ambulate 10 Feet: Minimum Assistance X 1 Ability to Ambulate 50 Feet With 2 Turns: Minimum Assistance X 1 Ambulation Assistive Devices: Walker, Platform Transfers Ability Ability to Transfer In/Out of Chair: Moderate Assistance X 1 Exam Const: General: comfortable and no acute distress HENMT: General nose exam: Normal nares present Mouth: Yes moist mucous membranes Eyes: General: appearance normal, both eyes and all related structures Neck: Neck: supple and no JVD Resp: Effort & Inspection: normal respiratory effort Auscultation: clear to auscultation bilaterally Cardio: Rate: regular rate Rhythm: regular rhythm GI: GI Palp: Yes Soft to palpation Auscultation: normal bowel sounds Skin: General skin exam: normal color and no rashes or lesions noted Neuro: Other: patient is awake and alert well oriented her dysarthria and dysphonia is improving likewise the right-sided hemiparesis is improving the family is here and watching how the therapies done and probably will get the training also prior to her discharge Extrem: General: normal to inspection Objective Data Vital Signs Vital Signs: Vital Signs - 24 hr 05/12/19 22:00 05/13/19 06:00 05/13/19 10:04 Temperature 36.5 C 36.5 C Pulse Rate 71 69 69 Respiratory Rate 16 16 Blood Pressure 173/82 H 174/66 H Pulse Oximetry 100 100 Intake/Output Intake/Output: Intake & Output 05/10/19 05/11/19 05/12/19 05/13/19 23:59 23:59 23:59 23:59 Intake Total 720 840 760 240 Balance 720 840 760 240 Meds/Results Medications: Active Medications Generic Name Dose Route Start Last Admin Trade Name Freq PRN Reason Stop Dose Admin Acetaminophen 650 mg 05/04/19 14:57 05/10/19 23:17 Tylenol Tablet PO 650 mg Q4H PRN Administration Mild Pain (1-3) or Fever Amlodipine Besylate 10 mg 05/04/19 09:00 05/13/19 10:04 Norvasc PO 10 mg DAILY BRADY Administration Aspirin 81 mg 05/04/19 08:00 05/13/19 10:05 Aspirin Chewable PO 81 mg DAILY@0800 BRADY Administration Atorvastatin Calcium 80 mg 05/03/19 23:00 05/12/19 22:23 Lipitor PO 80 mg HS BRADY Administration Carvedilol 12.5 mg 05/03/19 23:00 05/13/19 10:04 Coreg PO 12.5 mg Q12HR BRADY Administration Chlorthalidone 25 mg 05/04/19 09:00 05/13/19 10:04 Hygro[place] PO 25 mg DAILY BRADY Administration Dextrose 12.5 gm 05/11/19 11:19 Dextrose 50% Syringe IV PUSH PRN PRN Hypoglycemia Protocol Docusate Sodium 100 mg 05/04/19 09:00 05/13/19 10:04 Colace Capsule PO 100 mg BID BRADY Administration
[2019-05-13 17:34] LABS: Glucose Point of Care 166 (65-105)
[2019-05-13] MEDS: PANTOPRAZOLE 40 MG TABLET PO (18:20)
[2019-05-13] MEDS: ATORVASTATIN 40 MG TABLET 80 MG PO (20:16)
[2019-05-13 20:17] VITALS: PULSE 82
[2019-05-13 21:18] VITALS: BP 155/73; PULSE 70; RESP 16; TEMP 36.6; O2SAT 99
[2019-05-13 21:18] LABS: Glucose Point of Care 148 (65-105)
[2019-05-14 06:00] VITALS: BP 151/62; PULSE 74; RESP 16; TEMP 36.6; O2SAT 100
[2019-05-14] MEDS: glipiZIDE 2.5 MG TABLET PO (06:36)
[2019-05-14 06:59] LABS: Glucose Point of Care 110 (65-105)
--- NOTE | 2019-05-14 08:22 | PCPTNOTE ---
Delia Gonzales was evaluated for a platform wheeled walker on 05/14/2019 by this physical therapist. The platform wheeled walker will resolve patient's mobility limitations and will be used for ADL's within the home for short distances. The patient can safely use the platform wheeled walker for short distances in home. ?The platform wheeled walker will resolve the patient?s mobility deficits, including gait in her home with family standby assist, and in the bathroom. Dena Quick PT
--- NOTE | 2019-05-14 08:25 | PCPTNOTE ---
Dena Quick PT completed an inpatient rehab wheelchair evaluation on Delia Gonzales on 05/14/2019. The patient is unable to safely and independently ambulate household distances due to their current impairments. Their diagnosis is cva and their impairments include decreased strength, decreased endurance, decreased range of motion, decreased balance, lower extremity weakness, and ataxia. Delia's weight bearing status is weight-bearing as tolerated on the bilateral lower legs. The patient demonstrates significant functional mobility limitations that impair their ability to participate in mobility-related activities of daily living (MRADLs), including toileting, feeding, dressing, grooming, and bathing in the customary locations in the home. These limitations cannot be sufficiently resolved by the use of an appropriately fitted cane or walker. It is recommended that the patient utilize a wheelchair for functional mobility within the home in order to facilitate optimal safety, independence and participation in all MRADL's and adequately access their home environment on a regular basis. The patient's home provides adequate access between rooms, maneuvering space, and surfaces to accommodate the recommended wheelchair. The use of a wheelchair for functional mobility is strongly recommended and the patient is receptive to using the wheelchair. The use of this wheelchair will significantly improve the patient's ability to participate in MRADLS and the patient will use it on a regular basis in the home. This will facilitate optimal safety, independence, and participation. The patient has demonstrated sufficient physical and mental capabilities needed to safely propel a manual wheelchair that is provided in the home during a typical day. Recommended Wheelchair Frame: standard Recommended Wheelchair Size: 16H x 18W Recommended Wheelchair Cushion: Wheelchair Leg Recommendations: detatchable legs Anti-tippers are recommended due to patient demonstrating increased risk for falls. They would benefit from anti-tippers with added safety and stabilization. -(KEEP OR DELETE) A safety belt/pelvic strap is recommended because Dena Quick PT ____05/14/19 Evaluating Therapist Date I agree with and certify that the above recommendation is medically necessary. Referring Physician Date I agree with and certify that the above recommendation is medically necessary. Referring Physician Date
[2019-05-14] MEDS: AMLODIPINE BESYLATE 5 MG TABLET 10 MG PO (09:16)
[2019-05-14] MEDS: CHLORTHALIDONE 25 MG TABLET PO (09:16)
[2019-05-14] MEDS: SPIRONOLACTONE 25 MG TABLET PO (09:16)
[2019-05-14] MEDS: DOCUSATE SODIUM 100 MG CAPSULE PO ×2 (09:16→18:03)
[2019-05-14] MEDS: ASPIRIN 81 MG CHEWABLE TABLET PO (09:16)
[2019-05-14 09:17] VITALS: PULSE 68
[2019-05-14] MEDS: carvediloL 12.5 MG TABLET PO ×2 (09:17→19:58)
[2019-05-14] MEDS: INSULIN GLARGINE (*BKC) 100 UNITS/ML 20 UNITS SUB-Q (09:25)
--- NOTE | 2019-05-14 12:31 | PCSTNOTE ---
Patient is tolerating solid trials without pocketing or oral residue. Would recommend diet upgrade to soft and bite-sized. Nursing notified.
[2019-05-14 12:32] LABS: Glucose Point of Care 138 (65-105)
[2019-05-14 14:00] VITALS: BP 163/72; PULSE 66; RESP 17; TEMP 36.4; O2SAT 100
--- NOTE | 2019-05-14 16:49 | PCCDE ---
polymer specialist f/up: [phone] called pt's sister Isabel who confirms that she also has diabetes and knows how to give insulin. Pt does not have a BGM. Met with pt and provided ONE TOUCH VERIO FLEX BG meter (free of charge) and instructed: how to use, when to test, BG goals, recording and sharing results with PCP for medication adjustment, coverage and how to get supplies. Pt was able to v/u of 2 sx of hypoglycemia and 2 items to treat hypoglycemia. Advised to carry glucose tabs for tx. Reviewed changes to DM meds: including taking Lantus in the am now and taking Glipizide instead of Metformin. Pt v/u. Pt with many questions about what she can eat. Pt usually on eats 1 meal/day. Advised to eat 3 meals/day spaced no more than 4-5hours apart. Pt mentioned fast foods. Advised to stay away from fast food d/t high sodium content and gave ideas for simple meals at home that are low sodium. Pt also wanted to know how to season foods. Provided Diabetes Management book and reviewed free food list and marked off high sodium foods like pickles. Provided contact info and encouraged to call prn.
[2019-05-14] MEDS: PANTOPRAZOLE 40 MG TABLET PO (18:02)
[2019-05-14 18:05] LABS: Glucose Point of Care 160 (65-105)
[2019-05-14 19:58] VITALS: PULSE 76
[2019-05-14] MEDS: ATORVASTATIN 40 MG TABLET 80 MG PO (19:58)
[2019-05-14 20:45] LABS: Glucose Point of Care 217 (65-105)
[2019-05-14 22:00] VITALS: BP 157/82; PULSE 63; RESP 18; TEMP 36.2; O2SAT 100
[2019-05-15 06:00] VITALS: BP 151/77; PULSE 73; RESP 18; TEMP 36.7; O2SAT 94
[2019-05-15] MEDS: glipiZIDE 2.5 MG TABLET PO (06:26)
[2019-05-15 06:56] LABS: Glucose Point of Care 167 (65-105)
[2019-05-15 10:05] VITALS: PULSE 74
[2019-05-15] MEDS: AMLODIPINE BESYLATE 5 MG TABLET 10 MG PO (10:05)
[2019-05-15] MEDS: DOCUSATE SODIUM 100 MG CAPSULE PO ×2 (10:05→17:09)
[2019-05-15] MEDS: CHLORTHALIDONE 25 MG TABLET PO (10:05)
[2019-05-15] MEDS: ASPIRIN 81 MG CHEWABLE TABLET PO (10:05)
[2019-05-15] MEDS: carvediloL 12.5 MG TABLET PO ×2 (10:05→20:30)
[2019-05-15] MEDS: SPIRONOLACTONE 25 MG TABLET PO (10:06)
[2019-05-15] MEDS: INSULIN GLARGINE (*BKC) 100 UNITS/ML 20 UNITS SUB-Q (10:07)
[2019-05-15 11:47] LABS: Glucose Point of Care 181 (65-105)
[2019-05-15 14:00] VITALS: BP 151/78; PULSE 69; RESP 18; TEMP 36.6; O2SAT 100
--- NOTE | 2019-05-15 14:14 | WPDNEURORHBP ---
Subjective Date/time seen: 05/15/19 14:14 Interval history: the patient is here with brainstem stroke with dysphonia and dysarthria and right-sided weakness doing fairly well has a good report in over team conference from the nursing PT OT and speech she has improved and looking forward to be going home on May 25, 2019 The patient denies any headache chest pain shortness of breath abdominal pain diarrhea vomiting fever chills or sore throat Review of Systems Constitutional: Constitutional: Reports no additional constitutional complaints Eyes: Eyes: Reports no additional eye complaints ENT: Reports system reviewed and no additional complaints, except as documented Cardiovascular: Cardiovascular: Reports no additional cardiovascular complaints Respiratory: Respiratory: Reports no additional respiratory complaints Gastrointestinal: Gastrointestinal: Reports no additional gastrointestinal complaints Genitourinary: Genitourinary: Reports no additional female genitourinary complaints Musculoskeletal: Musculoskeletal: Reports no additional musculoskeletal complaints Integumentary/Breasts: Skin/Breast: Reports system reviewed and no additional complaints, except as docu Neurologic: Reports system reviewed and no additional complaints, except as documented Functional Status Ambulation Ability Ability to Ambulate 10 Feet: Moderate Assistance X 1 Ability to Ambulate 50 Feet With 2 Turns: Minimum Assistance X 1 Ambulation Assistive Devices: Walker, Platform Transfers Ability Ability to Transfer In/Out of Chair: Moderate Assistance X 1 Exam Const: General: comfortable and no acute distress HENMT: General nose exam: Normal nares present Mouth: Yes moist mucous membranes Eyes: General: appearance normal, both eyes and all related structures Neck: Neck: supple and no JVD Resp: Effort & Inspection: normal respiratory effort Auscultation: clear to auscultation bilaterally Cardio: Rate: regular rate Rhythm: regular rhythm GI: GI Palp: Yes Soft to palpation Auscultation: normal bowel sounds Skin: General skin exam: normal color and no rashes or lesions noted Neuro: Other: patient is awake and alert well oriented time place and person her speech defect dysphonia dysarthria has improved and much better ability to eat is much better right-sided weakness is also improving and she is looking forward to be going home with home health Objective Data Vital Signs Vital Signs: Vital Signs - 24 hr 05/14/19 19:58 05/14/19 22:00 05/15/19 06:00 Temperature 36.2 C L 36.7 C Pulse Rate 76 63 73 Respiratory Rate 18 18 Blood Pressure 157/82 H 151/77 H Pulse Oximetry 100 94 05/15/19 10:05 Temperature Pulse Rate 74 Respiratory Rate Blood Pressure Pulse Oximetry Intake/Output Intake/Output: Intake & Output 05/12/19 05/13/19 05/14/19 05/15/19 23:59 23:59 23:59 23:59 Intake Total 760 720 840 240 Balance 760 720 840 240 Meds/Results Medications: Active Medications Generic Name Dose Route Start Last Admin Trade Name Freq PRN Reason Stop Dose Admin Acetaminophen 650 mg 05/04/19 14:57 05/10/19 23:17 Tylenol Tablet PO 650 mg Q4H PRN Administration Mild Pain (1-3) or Fever Amlodipine Besylate 10 mg 05/04/19 09:00 05/15/19 10:05 Norvasc PO 10 mg DAILY BRADY Administration Aspirin 81 mg 05/04/19 08:00 05/15/19 10:05 Aspirin Chewable PO 81 mg DAILY@0800 BRADY Administration Atorvastatin Calcium 80 mg 05/03/19 23:00 05/14/19 19:58 Lipitor PO 80 mg HS BRADY Administration Carvedilol 12.5 mg 05/03/19 23:00 05/15/19 10:05 Coreg PO 12.5 mg Q12HR BRADY Administration Chlorthalidone 25 mg 05/04/19 09:00 05/15/19 10:05 Hygro[place] PO 25 mg DAILY BRADY Administration Dextrose 12.5 gm 05/11/19 11:19 Dextrose 50% Syringe IV PUSH PRN PRN Hypoglycemia Protocol Docusate Sodium 100 mg 05/04/19 09:00 05/15/19 10:05 Colace Caps
[2019-05-15 16:46] LABS: Glucose Point of Care 130 (65-105)
[2019-05-15] MEDS: PANTOPRAZOLE 40 MG TABLET PO (17:10)
[2019-05-15 20:01] VITALS: O2SAT 100
[2019-05-15 20:30] VITALS: PULSE 72
[2019-05-15] MEDS: ATORVASTATIN 40 MG TABLET 80 MG PO (20:30)
[2019-05-15 21:36] LABS: Glucose Point of Care 201 (65-105)
[2019-05-15 22:00] VITALS: BP 150/73; PULSE 64; RESP 16; TEMP 36.4; O2SAT 100
[2019-05-16 03:25] LABS: Glucose Point of Care 148 (65-105)
[2019-05-16 06:00] VITALS: PULSE 72; RESP 16; TEMP 36.3; O2SAT 100
[2019-05-16] MEDS: glipiZIDE 2.5 MG TABLET PO (06:42)
[2019-05-16 07:27] LABS: Glucose Point of Care 131 (65-105)
[2019-05-16] MEDS: INSULIN GLARGINE (*BKC) 100 UNITS/ML 20 UNITS SUB-Q (08:46)
[2019-05-16] MEDS: SPIRONOLACTONE 25 MG TABLET PO (09:19)
[2019-05-16] MEDS: AMLODIPINE BESYLATE 5 MG TABLET 10 MG PO (09:19)
[2019-05-16] MEDS: carvediloL 12.5 MG TABLET PO ×2 (09:20→20:33)
[2019-05-16] MEDS: CHLORTHALIDONE 25 MG TABLET PO (09:20)
[2019-05-16] MEDS: ASPIRIN 81 MG CHEWABLE TABLET PO (09:20)
[2019-05-16] MEDS: DOCUSATE SODIUM 100 MG CAPSULE PO (09:22)
[2019-05-16 12:07] LABS: Glucose Point of Care 128 (65-105)
--- NOTE | 2019-05-16 13:45 | WPDNEURORHBP ---
Subjective Date/time seen: 05/16/19 13:45 Interval history: this 48-year-old woman is here after suffering from brainstem stroke with speech difficulties and right-sided hemiparesis she is improving quite a bit and looking forward to be discharged soon She denies any new neurological symptoms. She denies any headache chest pain shortness of breath abdominal pain and diarrhea vomiting fevers chills or sore throat Review of Systems Review of Systems: All systems reviewed & are unremarkable except as noted in HPI and below Functional Status Ambulation Ability Ability to Ambulate 10 Feet: Moderate Assistance X 1 Ability to Ambulate 50 Feet With 2 Turns: Minimum Assistance X 1 Ambulation Assistive Devices: Walker, Platform Transfers Ability Ability to Transfer In/Out of Chair: Moderate Assistance X 1 Exam Const: General: comfortable and no acute distress HENMT: General nose exam: Normal nares present Mouth: Yes moist mucous membranes Eyes: General: appearance normal, both eyes and all related structures Neck: Neck: supple and no JVD Resp: Effort & Inspection: normal respiratory effort Auscultation: clear to auscultation bilaterally Cardio: Rate: regular rate Rhythm: regular rhythm GI: GI Palp: Yes Soft to palpation Auscultation: normal bowel sounds Skin: General skin exam: normal color and no rashes or lesions noted Neuro: Other: patient is awake and alert well oriented in times place and person her speech defect is clearing up likewise right-sided hemiparesis is improving and she has come a long way from the time he received her Extrem: General: normal to inspection Objective Data Vital Signs Vital Signs: Vital Signs - 24 hr 05/15/19 14:00 05/15/19 20:01 05/15/19 20:30 Temperature 36.6 C Pulse Rate 69 72 Respiratory Rate 18 Blood Pressure 151/78 H Pulse Oximetry 100 100 05/15/19 22:00 05/16/19 06:00 Temperature 36.4 C L 36.3 C L Pulse Rate 64 72 Respiratory Rate 16 16 Blood Pressure 150/73 H Pulse Oximetry 100 100 Intake/Output Intake/Output: Intake & Output 05/13/19 05/14/19 05/15/19 05/16/19 23:59 23:59 23:59 23:59 Intake Total 720 840 600 120 Balance 720 840 600 120 Meds/Results Medications: Active Medications Generic Name Dose Route Start Last Admin Trade Name Freq PRN Reason Stop Dose Admin Acetaminophen 650 mg 05/04/19 14:57 05/10/19 23:17 Tylenol Tablet PO 650 mg Q4H PRN Administration Mild Pain (1-3) or Fever Amlodipine Besylate 10 mg 05/04/19 09:00 05/16/19 09:19 Norvasc PO 10 mg DAILY BRADY Administration Aspirin 81 mg 05/04/19 08:00 05/16/19 09:20 Aspirin Chewable PO 81 mg DAILY@0800 BRADY Administration Atorvastatin Calcium 80 mg 05/03/19 23:00 05/15/19 20:30 Lipitor PO 80 mg HS BRADY Administration Carvedilol 12.5 mg 05/03/19 23:00 05/16/19 09:20 Coreg PO 12.5 mg Q12HR BRADY Administration Chlorthalidone 25 mg 05/04/19 09:00 05/16/19 09:20 Hygro[place] PO 25 mg DAILY BRADY Administration Dextrose 12.5 gm 05/11/19 11:19 Dextrose 50% Syringe IV PUSH PRN PRN Hypoglycemia Protocol Docusate Sodium 100 mg 05/04/19 09:00 05/16/19 09:22 Colace Capsule PO 100 mg BID BRADY Administration Glipizide 2.5 mg 05/12/19 06:30 05/16/19 06:42 Glucotrol PO 2.5 mg DAILY@0630 BRADY Administration Glucagon 1 mg 05/11/19 11:19 Glucagon For Inj IM PRN PRN Hypoglycemia Protocol Glucose 15 gm 05/11/19 11:19 Glutose 15 PO PRN PRN Hypoglycemia Protocol Dextrose 1,000 mls @ 100 mls/hr 05/11/19 11:19 Dextrose 5% 1,000 Ml IVPB PRN PRN Hypoglycemia Protocol Insulin Glargine 20 units 05/12/19 09:00 05/16/19 08:46 Lantus SUB-Q 20 units DAILY BRADY Administration Pantoprazole Sodium 40 mg 05/03/19 22:25 05/15/19 17:10 Protonix PO 40 mg DAILY@1630 BRADY Administration Polyethylene Glycol 17 gm 02
[2019-05-16 14:00] VITALS: BP 153/63; PULSE 67; RESP 18; TEMP 36.7; O2SAT 100
[2019-05-16 16:59] LABS: Glucose Point of Care 89 (65-105)
[2019-05-16] MEDS: ATORVASTATIN 40 MG TABLET 80 MG PO (20:32)
[2019-05-16 20:33] VITALS: PULSE 72
[2019-05-16] MEDS: PANTOPRAZOLE 40 MG TABLET PO (20:33)
[2019-05-16 21:07] LABS: Glucose Point of Care 104 (65-105)
[2019-05-16 22:00] VITALS: BP 150/75; PULSE 70; RESP 17; TEMP 36.3; O2SAT 100
[2019-05-17 06:00] VITALS: BP 152/76; PULSE 66; RESP 19; TEMP 36.4; O2SAT 100
[2019-05-17 06:54] LABS: Glucose Point of Care 77 (65-105)
[2019-05-17] MEDS: CHLORTHALIDONE 25 MG TABLET PO (08:42)
[2019-05-17] MEDS: glipiZIDE 2.5 MG TABLET PO (08:42)
[2019-05-17] MEDS: ASPIRIN 81 MG CHEWABLE TABLET PO (08:42)
[2019-05-17] MEDS: AMLODIPINE BESYLATE 5 MG TABLET 10 MG PO (08:42)
[2019-05-17] MEDS: carvediloL 12.5 MG TABLET PO (08:42)
[2019-05-17] MEDS: SPIRONOLACTONE 25 MG TABLET PO (08:42)
[2019-05-17 11:49] LABS: Glucose Point of Care 82 (65-105)
--- NOTE | 2019-05-22 01:07 | DS_ITS ---
DATE OF DISCHARGE: 05/17/2019 DISCHARGE ACUTE REHAB DIAGNOSIS: Primary rehab impairment category of a stroke with the etiological diagnosis of acute infarct in left medial walter and right centrum semiovale. DISCHARGE ACTIVE COMORBID CONDITIONS: 1. Bronchial asthma. 2. Diabetes mellitus type 2. 3. Hypertension. 4. Peripheral neuropathy. REASON FOR ADMISSION: A 48 years old, right-handed female, admitted to the hospital in [facility] on 04/28/2019, with complaints of hypertension despite being compliant with her antihypertensive medication along with the complaints of nausea, vomiting, and chest discomfort. In the emergency room, blood pressure was recorded 240/141, was admitted to the telemetry bed and cardiologists were consulted. EKG revealed septal infarct with normal sinus rhythm. Overnight, she developed right-sided weakness and MRI revealed acute infarct in the left walter and additional punctate acute infarction within the right frontal soliman radiata and centrum semiovale. Her BUN was recorded at 57 with a creatinine of 2.5 on 05/02/2019, which was attributed secondary to metformin and lisinopril and medications were discontinued. BUN gradually came down to 6. She was placed on Lantus 20 units b.i.d. for the diabetes. Her echocardiogram revealed 65% ejection fraction. She demonstrated slow processing, decreased cognition, impaired balance, decreased coordination, and was discharged to the rehab floor for further evaluation and management. LEVEL OF FUNCTION AT THE TIME OF ADMISSION: The patient required setup for eating, oral hygiene; substantial assistance for the toileting, bathing, upper body dressing, lower body dressing, footwear; partial assistance for rolling in bed, sit to lying, lying to sitting, sit to stand, chair transfer, toilet transfer, car transfer, walking 10 feet and walking 10 feet on uneven surfaces also. She required substantial assistance for walking 50 feet with 2 turns, curb or step, 4 steps. She was unable to take 12 steps on uneven surfaces and she was unable to pickup object. She required substantial assistance for the wheelchair for 50 feet and was unable to do for 150 feet. ANTICIPATED REHAB GOALS: Were to make her only required setup for eating, become independent oral hygiene, require supervision for toileting, bathing, setup for upper body dressing, supervision for lower body dressing, set up for footwear, become independent rolling in bed, sit to lying, lying to sitting, sit to stand; supervision for chair transfer, toilet transfer, car transfer; become independent 10 feet walking, supervision for walking 50 feet with 2 turns, 150 feet, walking 10 feet on uneven surfaces; partial assistance for curb or step, 4 steps, 12 steps; supervision for picking objects, partial assistance for the wheelchair for 50 feet and 150 feet. LEVEL OF FUNCTION AT THE TIME OF DISCHARGE: The patient required only setup for the eating, oral hygiene; supervision for toileting, partial assistance for bathing, upper body dressing, lower body dressing, footwear, sit to lying, lying to sitting, sit to stand, chair transfer, toilet transfer, car transfer, walking 10 feet, 10 feet on uneven surfaces, curb or step, 4 steps, 12 steps, she was unable to do so. She required partial assistance for picking up object, wheelchair for 50 feet and 150 feet as well. She required only setup for the rolling in bed, and she was unable to walk 50 feet with 2 turns, and 150 feet. HOSPITAL COURSE: During the hospitalization, she remained actively involved in the physical therapy and occupational therapy. At the time of discharge, she was ambulating with walking, walker and platform with 2 turns minimum assistance of 1, while she was walking 10 feet with moderate assistance of one, 50 feet with 2 turns
== END 2019-05-17 15:25 | disposition home health service (06) | DRG 57 ==
PROVIDERS: Admitting Provider Psychiatry & Neurology Neurology; Visit Provider Psychiatry & Neurology Neurology
DX: I69.351 Hemiplegia and hemiparesis following cerebral infarction affecting right dominant side (principal); I69.322 Dysarthria following cerebral infarction; I69.391 Dysphagia following cerebral infarction; E11.42 Type 2 diabetes mellitus with diabetic polyneuropathy; E11.22 Type 2 diabetes mellitus with diabetic chronic kidney disease; H26.9 Unspecified cataract; I13.10 Hypertensive heart and chronic kidney disease without heart failure, with stage 1 through stage 4 chronic kidney disease, or unspecified chronic kidney disease; J45.909 Unspecified asthma, uncomplicated; N18.3 Chronic kidney disease, stage 3 (moderate); Z79.4 Long term (current) use of insulin; Z23 Encounter for immunization
CPT/HCPCS: 36415; 80048; 80061; 83036; 85025; 85055; 87081; 92507; 92508; 92523; 92526; 92610; 97110; 97116; 97150; 97162; 97166; 97530; 97535; 97542; A9270; J1815